=== PATIENT | female | born 1985 | race Caucasian/White ===

== ENCOUNTER 2020-06-06 16:17 | Emergency (ER) | payer MEDICAID ==
[~2020-06-06] VITALS: Ht 165.1 cm; Wt 72.7 kg
[2020-06-06 16:20] VITALS: BP 132/87; Ht 165.1 cm; Wt 72.7 kg
[2020-06-06 16:38] LABS: BILIRUBIN NEGATIVE (NEGATIVE); KETONE NEGATIVE (NEGATIVE); NITRITE NEGATIVE (NEGATIVE); UROBILINOGEN NORMAL mg/dL (< 2)
[2020-06-06 16:40] LABS: HCG URINE NEGATIVE (NEGATIVE)
[2020-06-06 16:41] LABS: BASOPHILS 0.5 % (0-2); EOSINOPHILS 1.8 % (0-7); HEMATOCRIT 37.4 % (36.0-48.0); HEMOGLOBIN 12.6 g/dL (12-16); IMMATURE GRANULOCYTES 0.1 % (0-5); LYMPHOCYTE ABS# 2.41 10x3/uL (1.18-3.74); LYMPHOCYTES 26.4 % (15-50); MCH 30.5 pg (26.0-34.0); MCHC 33.7 g/dL (31.0-37.0); MCV 90.6 fL (80.0-100.0); MEAN PLATELET VOLUME 10.5 fL (7.4-10.4); MONOCYTES 5.7 % (2-11); NEUTROPHIL ABS# 5.98 10x3/uL (1.56-6.13); NEUTROPHILS 65.5 % (40-80); RBC 4.13 10x6/uL (4.00-5.40); RDW 12.6 % (11.5-14.5); WBC 9.1 10x3/uL (4.8-10.8)
[2020-06-06 16:42] LABS: PLATELET COUNT 273 10x3/uL (130-400)
[2020-06-06 17:02] LABS: CALC OSMOLALITY 276 mosm/kg (275-300); CALCIUM 8.5 mg/dL (8.5-10.1); CARBON DIOXIDE 24.2 mmol/L (21.0-32.0); CHLORIDE - SERUM 104 mmol/L (98-107); CREATININE - SERUM 0.9 mg/dL (0.6-1.3); GLUCOSE 101 mg/dL (74-106); POTASSIUM - SERUM 3.6 mmol/L (3.5-5.1); SODIUM 139 mmol/L (136-145); UREA NITROGEN 9 mg/dL (7-18); eGFR NON AFRICAN AMERICAN 76 mL/min (90-120)
[2020-06-06 17:11] LABS: ALBUMIN 3.5 g/dL (3.4-5.0); ALKALINE PHOSPHATASE 70 U/L (30-120); ALT (SGPT) 16 U/L (10-68); AMYLASE - SERUM 30 U/L (25-115); BILIRUBIN - TOTAL 0.51 mg/dL (0.2-1.3); PROTEIN - SERUM 6.8 g/dL (6.4-8.2)
[2020-06-06 17:18] LABS: LIPASE 42 U/L (73-393); TROPONIN-I < 0.017 ng/mL (0.000-0.060)
[2020-06-06] MEDS ORDERED: HYDROCODON-ACE1 EAC7 PO (18:55)
== END 2020-06-06 19:11 | disposition home or self-care (01) ==
LOC: D.ER 16:17
PROVIDERS: Family Medicine
DX: R10.30 Lower abdominal pain, unspecified (principal); R22.2 Localized swelling, mass and lump, trunk

== ENCOUNTER 2020-06-22 09:30 | Day surgery (SDC) | payer MEDICAID ==
[~2020-06-22] VITALS: Ht 165.1 cm; Wt 77.7 kg
--- NOTE | ~2020-06-22 | OP ---
PATIENT NAME: JAKE WILSON MEDICAL RECORD: [id number] :87 LOCATION:[facility] ADMISSION DATE: SURGEON: RICHI BARKSDALE MD DATE OF OPERATION: 06/22/2020 PREOPERATIVE DIAGNOSIS: Abdominal wall soft tissue mass. POSTOPERATIVE DIAGNOSIS: Abdominal wall soft tissue mass. PROCEDURE: Excision of 2 cm abdominal wall soft tissue mass. SURGEON: Richi Barksdale M.D. DESCRIPTION OF PROCEDURE: The patient's abdomen was prepped and draped in sterile fashion. [place] between the umbilicus and the pubis there was a firm nodule underneath the skin near the fascia. A longitudinal incision was made through an old scar and electrocautery was used to dissect through this down to the palpable mass. We encircled the mass using electrocautery and then took the mass up off of the fascia. A portion of the fascia was removed with this lesion. We did not appear to enter the peritoneal cavity. The lesion was then sent off for permanent specimen. We irrigated out the opening. The fascial defect was then closed transversely with multiple interrupted 0 Vicryls. The subcutaneous tissues and fascia were infused with a total of 10 mL of 0.25% Marcaine with epinephrine and the subcutaneous tissues were reapproximated with interrupted 3-0 Vicryl and the skin was closed with running subcutaneous 5-0 Monocryl and dressed appropriately. COMPLICATIONS: None. CONDITION: Stable. ANESTHESIA: General endotracheal and local. BLOOD LOSS: Minimal. TRANSINT:[id number] Voice Confirmation ID: [id number] DOCUMENT ID: [id number] RICHI BARKSDALE MD CC: JASSI STOLL [id number] DICTATION DATE: 06/22/20 1233 WARD SECRETARY: 06/22/202120 [facility] 06/22/20 [facility] [address] [place] [address]
[~2020-06-22 09:30] MED LIST: HYDROCODON-ACE1 EAC7 PO
[2020-06-22 10:13] LABS: BASOPHILS 0.6 % (0-2); EOSINOPHILS 1.3 % (0-7); HEMATOCRIT 41.7 % (36.0-48.0); HEMOGLOBIN 14.3 g/dL (12-16); IMMATURE GRANULOCYTES 0.3 % (0-5); LYMPHOCYTE ABS# 1.95 10x3/uL (1.18-3.74); MCH 30.6 pg (26.0-34.0); MCHC 34.3 g/dL (31.0-37.0); MCV 89.1 fL (80.0-100.0); MEAN PLATELET VOLUME 10.9 fL (7.4-10.4); MONOCYTES 3.9 % (2-11); NEUTROPHIL ABS# 4.59 10x3/uL (1.56-6.13); NEUTROPHILS 65.9 % (40-80); RBC 4.68 10x6/uL (4.00-5.40); RDW 12.7 % (11.5-14.5)
[2020-06-22 10:14] LABS: CALC OSMOLALITY 280 mosm/kg (275-300); CALCIUM 8.8 mg/dL (8.5-10.1); CARBON DIOXIDE 25.2 mmol/L (21.0-32.0); CHLORIDE - SERUM 106 mmol/L (98-107); CREATININE - SERUM 0.8 mg/dL (0.6-1.3); GLUCOSE 86 mg/dL (74-106); SODIUM 142 mmol/L (136-145); UREA NITROGEN 9 mg/dL (7-18); eGFR NON AFRICAN AMERICAN 87 mL/min (90-120)
[2020-06-22 10:20] LABS: PLATELET COUNT 189 10x3/uL (130-400)
[2020-06-22] MEDS ORDERED: ADVIL200 MG (10:23)
[2020-06-22] MEDS ORDERED: ACETAMINOPHEN325 MG (10:24)
[2020-06-22 10:28] VITALS: BP 106/51; Ht 165.1 cm; Wt 77.7 kg
[2020-06-22] MEDS ORDERED: HYDROCODONE-AC1 EAC2 PO (12:30)
--- NOTE | 2020-06-22 12:50 | NUR ---
OPA IN AIRWAY ON ADMIT
--- NOTE | 2020-06-22 13:13 | NUR ---
SCOPE PATCH BEHIND RT EAR ON ADMIT
--- NOTE | 2020-06-22 16:13 | NUR ---
CALLED DR BARKSDALE AFTER NO ANSWER TO PAGE. INFORMED HIM OF PT'S CONTINUED NAUSEA AFTER 2 L IVF AND THAT PT DOES NOT HAVE ANY NAUSEA MEDS AT HOME. HE SAID TO GIVE PT EITHER ZOFRAN 4 MG OR PHENERGAN 25 MG NOW, WHICHEVER WORKS BEST FOR PT, AND CALL IN AN RX FOR WHICHEVER ONE PT WANTS, TO TAKE EITHER RX Q 6 HOURS PRN N/V WITH #10 TABS. VERIFIED BOTH RX'S WITH DR BARKSDALE. THEN WENT TO PT, SHE SAID PHENERGAN WORKS BEST FOR HER. 1620 CALLED IN RX FOR PHENERGAN 25 MG 1 PO Q 6 HOURS PRN N/V #10 TO Zonia MCGRATH AT [facility] AT [phone]. PT GIVEN PHENERGAN 25 MG TAB PO AT THIS TIME BY SHAHZAD CALDWELL.
--- NOTE | 2020-06-22 16:21 | NUR ---
IV DC'D WITH CATH TIP INTACT AND PT GETTING DRESSED FOR DISCHARGE HOME. INFORMED PT AND FRIEND AL THAT RX FOR PHENERGAN HAS BEEN CALLED IN TO PT'S PHARMACY, [facility] [address]. THEY BOTH VOICED UNDERSTANDING. 1629- DISCHARGED VIA W/C, ACCOMPANIED BY THIS NURSE, TO POV WITH FRIEND AL DRIVING. ALL BELONGINGS AND SOME EMESIS BAGS WITH PT.
== END 2020-06-22 16:29 | disposition home or self-care (01) ==
LOC: D.OPS 09:30
PROVIDERS: ATTEND Surgery
DX: R19.00 Intra-abdominal and pelvic swelling, mass and lump, unspecified site (principal); R10.9 Unspecified abdominal pain